=== PATIENT | female | born 1935 | race Two or more races ===

== ENCOUNTER 2020-02-11 13:07 | Inpatient (IN) | payer MEDICARE, OTHER ==
[~2020-02-11] VITALS: Ht 157.5 cm; Wt 64.4 kg
[2020-02-11] MEDS ORDERED: DOXYCYCLINE 100 MG TAB/CAP PO ONE (14:00)
[2020-02-11] MEDS ORDERED: DexAMETHasone SOD PHOS 10MG/1ML VIAL INJ IV ONE (14:00)
[2020-02-11] MEDS ORDERED: cefTRIAXone 1GM/50ML D5W 50 ML IV ONE (14:00)
[2020-02-11 14:22] LABS: Basophils # (auto) 0 10 ^3/uL (0-0.2); Eosinophils # (auto) 0 10 ^3/uL (0-0.8); Hematocrit 40.8 % (36.0-46.0); Hemoglobin 13.3 g/dL (12.2-16.2); Lymphocytes # (auto) 0.5 10 ^3/uL (0.4-5.4); Lymphocytes % (auto) 8.6 % (10.0-50.0); Mean Corpuscular Hemoglobin 29.9 pg (28.0-32.0); Mean Corpuscular Hgb Conc. 32.6 g/dL (32.0-36.0); Mean Corpuscular Volume 91.7 fL (80.0-100.0); Monocytes # (auto) 0.3 10 ^3/uL (0-1.3); Neutrophils # (auto) 4.9 10 ^3/uL (1.6-8.6); Neutrophils % (auto) 86.4 % (37.0-80.0); Platelet Count (auto) 181 10^3/uL (140-450); Red Blood Cells 4.45 10^6/uL (4.0-5.20); Red Cell Distribution Width 13.4 % (11.8-14.3); White Blood Cell 5.7 10^3/uL (4.4-10.8)
[2020-02-11 14:37] LABS: INR 0.92 (0.9-1.15); Partial Thromboplastin Time 32.5 sec (23.0-31.2)
[2020-02-11 14:40] LABS: Albumin 3.5 g/dL (3.4-5.0); Calcium 9.2 mg/dL (8.5-10.1); Potassium 4.7 mmol/L (3.5-5.1)
[2020-02-11 14:42] LABS: Lactic Acid w/Reflex 2.5 mmol/L (0.4-2.0)
[2020-02-11 14:45] LABS: BUN/Creatinine Ratio 23.8; Bilirubin, Total 0.4 mg/dL (0.2-1.0); Total Protein 8.5 g/dL (6.4-8.2)
[2020-02-11 14:58] LABS: Magnesium 2.3 mg/dL (1.6-2.6)
[2020-02-11 15:07] LABS: CRP High Sensitivity 9.71 mg/dL (< 0.3)
[2020-02-11] MEDS ORDERED: InsuLIN REG 1unit/0.01ml Soln (100units/ml) IV ONE (15:45)
[2020-02-11] MEDS ORDERED: MORPHINE SULF INJ 2 MG/ML SYRINGE 1ML IV PRN (16:00)
[2020-02-11] MEDS ORDERED: NITROGLYCERIN 0.4 MG SL TAB SL PRN (16:00)
[2020-02-11] MEDS ORDERED: DEXTROSE (50%) 50ML SYRG IV PRN (16:15)
[2020-02-11] MEDS: SODIUM CHLORIDE 0.9% 1,000 ML IV SCH ×2 (16:22→17:15)
[2020-02-11 17:46] VITALS: BP 146/73
[2020-02-11] MEDS ORDERED: SIMV10TA73 PO (18:23)
[2020-02-11] MEDS ORDERED: LISI2.5T47 PO (18:23)
[2020-02-11] MEDS ORDERED: SITA100T7 PO (18:23)
[2020-02-11] MEDS ORDERED: ASPI-231 PO (18:23)
[2020-02-11] MEDS ORDERED: METF-370 PO (18:23)
[2020-02-11] MEDS ORDERED: LORA-622 PO (18:23)
[2020-02-11] MEDS: ACCU-CHEK COMFORT CURVE STRIP VI SCH ×2 (20:04→23:49)
[2020-02-11] MEDS: InsuLIN REG 1unit/0.01ml Soln (100units/ml) SC SCH ×2 (20:05→23:46)
[2020-02-11 20:49] VITALS: BP 140/81
[2020-02-11] MEDS: ALBUTEROL SULF HFA 90MCG INH 200DOSE IN SCH (22:59)
[2020-02-11] MEDS: INSULIN LANTUS (GLARGINE) 1 /0.01ml (100units/ml) SC SCH (23:13)
[2020-02-11] MEDS: DOXYCYCLINE 100 MG TAB/CAP PO SCH (23:13)
[2020-02-12] VITALS (7 sets, daily range): BP systolic 118–133; BP diastolic 59–77
[2020-02-12] MEDS: ACCU-CHEK COMFORT CURVE STRIP VI SCH ×6 (04:20→23:43)
[2020-02-12] MEDS: InsuLIN REG 1unit/0.01ml Soln (100units/ml) SC SCH ×6 (04:20→23:43)
[2020-02-12] MEDS: INSULIN LANTUS (GLARGINE) 1 /0.01ml (100units/ml) SC SCH ×2 (05:47→22:06)
[2020-02-12] MEDS: ALBUTEROL SULF HFA 90MCG INH 200DOSE IN SCH ×3 (06:00→21:40)
[2020-02-12 07:16] LABS: Basophils # (auto) 0 10 ^3/uL (0-0.2); Basophils % (auto) 0.1 % (0.0-2.0); Eosinophils # (auto) 0 10 ^3/uL (0-0.8); Hematocrit 39.2 % (36.0-46.0); Hemoglobin 12.9 g/dL (12.2-16.2); Lymphocytes # (auto) 0.8 10 ^3/uL (0.4-5.4); Lymphocytes % (auto) 7.4 % (10.0-50.0); Mean Corpuscular Hemoglobin 30.1 pg (28.0-32.0); Mean Corpuscular Volume 91.2 fL (80.0-100.0); Monocytes # (auto) 0.5 10 ^3/uL (0-1.3); Monocytes % (auto) 5.3 % (0.0-12.0); Neutrophils # (auto) 9.1 10 ^3/uL (1.6-8.6); Neutrophils % (auto) 87.2 % (37.0-80.0); Platelet Count (auto) 193 10^3/uL (140-450); Red Cell Distribution Width 13.2 % (11.8-14.3); White Blood Cell 10.4 10^3/uL (4.4-10.8)
[2020-02-12 07:17] LABS: Albumin 2.9 g/dL (3.4-5.0); Potassium 4.2 mmol/L (3.5-5.1)
[2020-02-12 07:21] LABS: BUN/Creatinine Ratio 27.1; Bilirubin, Total 0.3 mg/dL (0.2-1.0); Total Protein 7.5 g/dL (6.4-8.2)
[2020-02-12] MEDS: DexAMETHasone SOD PHOS 10MG/1ML VIAL INJ IV SCH (09:24)
[2020-02-12] MEDS: DOXYCYCLINE 100 MG TAB/CAP PO SCH ×2 (09:24→22:06)
[2020-02-12] MEDS: ASCORBIC ACID 1,000 MG TAB PO SCH (09:24)
[2020-02-12] MEDS: ZINC SULFATE 220mg CAP or TAB PO SCH (09:25)
[2020-02-12] MEDS: ENOXAPARIN SOD 30 MG/0.3 ML SYRINGE SC SCH (09:25)
[2020-02-12] MEDS: CHOLECALCIFEROL (VITD3) 2,000 UNIT CAP PO SCH (09:25)
[2020-02-12] MEDS: cefTRIAXone 1GM/50ML D5W 50 ML IV SCH (09:26)
[2020-02-12] MEDS ORDERED: POTASSIUM EFFERVESENT TAB 25 MEQ PO ONE (16:00)
[2020-02-13] MEDS: InsuLIN REG 1unit/0.01ml Soln (100units/ml) SC SCH ×6 (03:54→23:16)
[2020-02-13] MEDS: ACCU-CHEK COMFORT CURVE STRIP VI SCH ×6 (03:54→23:15)
[2020-02-13 05:49] LABS: Basophils # (auto) 0 10 ^3/uL (0-0.2); Basophils % (auto) 0.2 % (0.0-2.0); Eosinophils # (auto) 0 10 ^3/uL (0-0.8); Hematocrit 38.3 % (36.0-46.0); Hemoglobin 12.9 g/dL (12.2-16.2); Lymphocytes # (auto) 0.8 10 ^3/uL (0.4-5.4); Lymphocytes % (auto) 6.8 % (10.0-50.0); Mean Corpuscular Hemoglobin 30.5 pg (28.0-32.0); Mean Corpuscular Hgb Conc. 33.8 g/dL (32.0-36.0); Mean Corpuscular Volume 90.4 fL (80.0-100.0); Monocytes # (auto) 0.6 10 ^3/uL (0-1.3); Monocytes % (auto) 5.5 % (0.0-12.0); Neutrophils # (auto) 10.2 10 ^3/uL (1.6-8.6); Neutrophils % (auto) 87.5 % (37.0-80.0); Platelet Count (auto) 210 10^3/uL (140-450); Red Blood Cells 4.24 10^6/uL (4.0-5.20); Red Cell Distribution Width 13.3 % (11.8-14.3); White Blood Cell 11.6 10^3/uL (4.4-10.8)
[2020-02-13 05:55] VITALS: BP 128/71
[2020-02-13 06:06] LABS: BUN/Creatinine Ratio 31.7; Calcium 8.3 mg/dL (8.5-10.1); Potassium 3.8 mmol/L (3.5-5.1)
[2020-02-13] MEDS: INSULIN LANTUS (GLARGINE) 1 /0.01ml (100units/ml) SC SCH ×2 (06:33→21:42)
[2020-02-13] MEDS: ALBUTEROL SULF HFA 90MCG INH 200DOSE IN SCH ×2 (07:12→23:08)
[2020-02-13] MEDS: DexAMETHasone SOD PHOS 10MG/1ML VIAL INJ IV SCH (08:29)
[2020-02-13] MEDS: cefTRIAXone 1GM/50ML D5W 50 ML IV SCH (08:29)
[2020-02-13] MEDS: ASCORBIC ACID 1,000 MG TAB PO SCH (08:30)
[2020-02-13] MEDS: ZINC SULFATE 220mg CAP or TAB PO SCH (08:30)
[2020-02-13] MEDS: DOXYCYCLINE 100 MG TAB/CAP PO SCH ×2 (08:30→21:43)
[2020-02-13] MEDS: CHOLECALCIFEROL (VITD3) 2,000 UNIT CAP PO SCH (08:30)
[2020-02-13] MEDS: ENOXAPARIN SOD 30 MG/0.3 ML SYRINGE SC SCH (08:31)
[2020-02-13 09:00] VITALS: BP 124/73
[2020-02-13 12:43] VITALS: BP 134/85
[2020-02-13] MEDS ORDERED: BUDESONIDE (INHALATION) 0.5 MG/2 ML NEB NEB ONE (13:00)
[2020-02-13] MEDS ORDERED: ALBUTEROL SULF HFA 90MCG INH 200DOSE IN SCH (14:00)
[2020-02-13 16:49] VITALS: BP 113/70
[2020-02-13] MEDS: guaiFENesin-DM 100/10mg/5ml SYR PO PRN (17:34)
[2020-02-13 21:30] VITALS: BP 128/76
[2020-02-13] MEDS ORDERED: BUDESONIDE (INHALATION) 0.5 MG/2 ML NEB NEB SCH (22:00)
[2020-02-13] MEDS ORDERED: PATIENTS OWN MEDICATION (PULMICORT 360 MCG) IN SCH (22:00)
[2020-02-13] MEDS: BUDESONIDE (INHALATION) 180 MCG IH IN SCH (23:08)
[2020-02-14] MEDS: InsuLIN REG 1unit/0.01ml Soln (100units/ml) SC SCH ×5 (03:39→23:37)
[2020-02-14] MEDS: ACCU-CHEK COMFORT CURVE STRIP VI SCH ×5 (03:40→23:40)
[2020-02-14 05:00] VITALS: BP 136/76
[2020-02-14] MEDS: ALBUTEROL SULF HFA 90MCG INH 200DOSE IN SCH ×5 (06:00→22:55)
[2020-02-14] MEDS: INSULIN LANTUS (GLARGINE) 1 /0.01ml (100units/ml) SC SCH ×2 (06:24→20:37)
[2020-02-14] MEDS: BUDESONIDE (INHALATION) 180 MCG IH IN SCH ×2 (07:11→22:55)
[2020-02-14 08:23] VITALS: BP 121/64
[2020-02-14] MEDS: cefTRIAXone 1GM/50ML D5W 50 ML IV SCH (09:02)
[2020-02-14] MEDS: DOXYCYCLINE 100 MG TAB/CAP PO SCH ×2 (09:03→20:39)
[2020-02-14] MEDS: CHOLECALCIFEROL (VITD3) 2,000 UNIT CAP PO SCH (09:03)
[2020-02-14] MEDS: DexAMETHasone SOD PHOS 10MG/1ML VIAL INJ IV SCH (09:03)
[2020-02-14] MEDS: ASCORBIC ACID 1,000 MG TAB PO SCH (09:03)
[2020-02-14] MEDS: ZINC SULFATE 220mg CAP or TAB PO SCH (09:03)
[2020-02-14] MEDS: ENOXAPARIN SOD 30 MG/0.3 ML SYRINGE SC SCH (09:04)
[2020-02-14 12:57] LABS: Urine Bacteria NONE SEEN /hpf (None Seen); Urine Blood Negative /uL (Negative); Urine WBC 1 /hpf (0 - 5)
[2020-02-14 13:11] VITALS: BP 129/75
[2020-02-14] MEDS ORDERED: POTASSIUM CHL 20 Meq TABLET PO ONE (14:45)
[2020-02-14] MEDS ORDERED: FUROSEMIDE 20 MG/2 ML VIAL IV ONE (14:45)
[2020-02-14] MEDS ORDERED: DEXTROSE (50%) 50ML SYRG IV PRN ×2 (15:30→15:45)
[2020-02-14 17:00] VITALS: BP 121/71
[2020-02-14] MEDS ORDERED: InsuLIN REG 1unit/0.01ml Soln (100units/ml) SC SCH ×2 (17:00→22:00)
[2020-02-14] MEDS ORDERED: ACCU-CHEK COMFORT CURVE STRIP VI SCH (17:00)
[2020-02-14 22:00] VITALS: BP 130/71
[2020-02-15 05:00] VITALS: BP 126/75
[2020-02-15] MEDS: InsuLIN REG 1unit/0.01ml Soln (100units/ml) SC SCH ×4 (06:00→23:16)
[2020-02-15] MEDS: ACCU-CHEK COMFORT CURVE STRIP VI SCH ×4 (06:04→23:13)
[2020-02-15] MEDS: INSULIN LANTUS (GLARGINE) 1 /0.01ml (100units/ml) SC SCH ×2 (06:09→21:36)
[2020-02-15] MEDS: ALBUTEROL SULF HFA 90MCG INH 200DOSE IN SCH ×3 (06:48→21:25)
[2020-02-15] MEDS: BUDESONIDE (INHALATION) 180 MCG IH IN SCH ×2 (06:48→21:25)
[2020-02-15 08:00] VITALS: BP 98/53
[2020-02-15] MEDS: cefTRIAXone 1GM/50ML D5W 50 ML IV SCH (09:00)
[2020-02-15] MEDS: FUROSEMIDE 20 MG/2 ML VIAL IV SCH (10:23)
[2020-02-15] MEDS: DexAMETHasone SOD PHOS 10MG/1ML VIAL INJ IV SCH (10:23)
[2020-02-15] MEDS: DOXYCYCLINE 100 MG TAB/CAP PO SCH ×2 (10:24→21:37)
[2020-02-15] MEDS: ASCORBIC ACID 1,000 MG TAB PO SCH (10:24)
[2020-02-15] MEDS: ZINC SULFATE 220mg CAP or TAB PO SCH (10:24)
[2020-02-15] MEDS: CHOLECALCIFEROL (VITD3) 2,000 UNIT CAP PO SCH (10:24)
[2020-02-15] MEDS: POTASSIUM CHL 20 Meq TABLET PO SCH (10:24)
[2020-02-15] MEDS: ENOXAPARIN SOD 30 MG/0.3 ML SYRINGE SC SCH (10:25)
[2020-02-15 12:00] VITALS: BP 135/73
[2020-02-15 17:00] VITALS: BP 124/58
[2020-02-15 22:00] VITALS: BP 117/54
[2020-02-16 05:00] VITALS: BP 140/70
[2020-02-16] MEDS: ACCU-CHEK COMFORT CURVE STRIP VI SCH ×4 (05:57→23:18)
[2020-02-16] MEDS: InsuLIN REG 1unit/0.01ml Soln (100units/ml) SC SCH ×4 (06:01→23:09)
[2020-02-16] MEDS: INSULIN LANTUS (GLARGINE) 1 /0.01ml (100units/ml) SC SCH ×2 (06:02→23:08)
[2020-02-16] MEDS: ALBUTEROL SULF HFA 90MCG INH 200DOSE IN SCH ×3 (06:56→21:48)
[2020-02-16] MEDS: BUDESONIDE (INHALATION) 180 MCG IH IN SCH ×2 (06:56→21:48)
[2020-02-16 07:22] LABS: Basophils # (auto) 0 10 ^3/uL (0-0.2); Basophils % (auto) 0.1 % (0.0-2.0); Eosinophils # (auto) 0 10 ^3/uL (0-0.8); Eosinophils % (auto) 0.1 % (0.0-7.0); Hematocrit 41.8 % (36.0-46.0); Hemoglobin 14.1 g/dL (12.2-16.2); Lymphocytes # (auto) 1.3 10 ^3/uL (0.4-5.4); Lymphocytes % (auto) 15.8 % (10.0-50.0); Mean Corpuscular Hemoglobin 30.4 pg (28.0-32.0); Mean Corpuscular Hgb Conc. 33.8 g/dL (32.0-36.0); Mean Corpuscular Volume 89.9 fL (80.0-100.0); Monocytes # (auto) 0.5 10 ^3/uL (0-1.3); Monocytes % (auto) 5.6 % (0.0-12.0); Neutrophils # (auto) 6.5 10 ^3/uL (1.6-8.6); Neutrophils % (auto) 78.4 % (37.0-80.0); Platelet Count (auto) 317 10^3/uL (140-450); Red Blood Cells 4.65 10^6/uL (4.0-5.20); Red Cell Distribution Width 13.3 % (11.8-14.3); White Blood Cell 8.3 10^3/uL (4.4-10.8)
[2020-02-16 07:49] LABS: Potassium 3.9 mmol/L (3.5-5.1)
[2020-02-16 07:54] LABS: BUN/Creatinine Ratio 32.9
[2020-02-16 08:00] VITALS: BP 137/75
[2020-02-16] MEDS: DexAMETHasone SOD PHOS 10MG/1ML VIAL INJ IV SCH (10:45)
[2020-02-16] MEDS: cefTRIAXone 1GM/50ML D5W 50 ML IV SCH (10:45)
[2020-02-16] MEDS: CHOLECALCIFEROL (VITD3) 2,000 UNIT CAP PO SCH (10:46)
[2020-02-16] MEDS: ASCORBIC ACID 1,000 MG TAB PO SCH (10:46)
[2020-02-16] MEDS: ENOXAPARIN SOD 30 MG/0.3 ML SYRINGE SC SCH (10:46)
[2020-02-16] MEDS: ZINC SULFATE 220mg CAP or TAB PO SCH (10:47)
[2020-02-16] MEDS: DOXYCYCLINE 100 MG TAB/CAP PO SCH (10:47)
[2020-02-16] MEDS: POTASSIUM CHL 20 Meq TABLET PO SCH (10:47)
[2020-02-16] MEDS: FUROSEMIDE 20 MG/2 ML VIAL IV SCH (10:48)
[2020-02-16 12:00] VITALS: BP 108/59
[2020-02-16 17:00] VITALS: BP 115/70
[2020-02-16 19:44] VITALS: BP 134/64
[2020-02-16 21:59] VITALS: BP 134/64
[2020-02-17 05:12] VITALS: BP 115/67
[2020-02-17] MEDS: InsuLIN REG 1unit/0.01ml Soln (100units/ml) SC SCH ×3 (06:00→18:24)
[2020-02-17] MEDS: ACCU-CHEK COMFORT CURVE STRIP VI SCH ×3 (06:26→18:19)
[2020-02-17] MEDS: INSULIN LANTUS (GLARGINE) 1 /0.01ml (100units/ml) SC SCH ×2 (06:36→21:37)
[2020-02-17 06:39] LABS: Basophils # (auto) 0 10 ^3/uL (0-0.2); Basophils % (auto) 0.3 % (0.0-2.0); Eosinophils # (auto) 0 10 ^3/uL (0-0.8); Eosinophils % (auto) 0.1 % (0.0-7.0); Hematocrit 40.2 % (36.0-46.0); Hemoglobin 13.7 g/dL (12.2-16.2); Lymphocytes # (auto) 1.5 10 ^3/uL (0.4-5.4); Mean Corpuscular Hemoglobin 30.7 pg (28.0-32.0); Mean Corpuscular Hgb Conc. 34.2 g/dL (32.0-36.0); Mean Corpuscular Volume 89.8 fL (80.0-100.0); Monocytes # (auto) 0.4 10 ^3/uL (0-1.3); Monocytes % (auto) 4.5 % (0.0-12.0); Neutrophils # (auto) 7.6 10 ^3/uL (1.6-8.6); Neutrophils % (auto) 79.1 % (37.0-80.0); Platelet Count (auto) 435 10^3/uL (140-450); Red Blood Cells 4.48 10^6/uL (4.0-5.20); Red Cell Distribution Width 13.7 % (11.8-14.3); White Blood Cell 9.6 10^3/uL (4.4-10.8)
[2020-02-17] MEDS: BUDESONIDE (INHALATION) 180 MCG IH IN SCH ×2 (06:56→23:33)
[2020-02-17] MEDS: ALBUTEROL SULF HFA 90MCG INH 200DOSE IN SCH ×3 (06:56→23:33)
[2020-02-17 06:57] LABS: Potassium 3.8 mmol/L (3.5-5.1)
[2020-02-17 07:10] LABS: BUN/Creatinine Ratio 36.3; Calcium 9.1 mg/dL (8.5-10.1)
[2020-02-17 08:31] VITALS: BP 120/44
[2020-02-17] MEDS: cefTRIAXone 1GM/50ML D5W 50 ML IV SCH (09:00)
[2020-02-17] MEDS: DexAMETHasone SOD PHOS 10MG/1ML VIAL INJ IV SCH (10:02)
[2020-02-17] MEDS: guaiFENesin-DM 100/10mg/5ml SYR PO PRN ×2 (10:02→18:24)
[2020-02-17] MEDS: ZINC SULFATE 220mg CAP or TAB PO SCH (12:05)
[2020-02-17] MEDS: POTASSIUM CHL 20 Meq TABLET PO SCH (12:05)
[2020-02-17] MEDS: ASCORBIC ACID 1,000 MG TAB PO SCH (12:05)
[2020-02-17] MEDS: FUROSEMIDE 20 MG/2 ML VIAL IV SCH (12:06)
[2020-02-17] MEDS: ENOXAPARIN SOD 30 MG/0.3 ML SYRINGE SC SCH (12:06)
[2020-02-17] MEDS: CHOLECALCIFEROL (VITD3) 2,000 UNIT CAP PO SCH (12:06)
[2020-02-17 12:21] VITALS: BP 121/72
[2020-02-17] MEDS: DOXYCYCLINE 100MG/250ML 250 ML IV SCH (13:15)
[2020-02-17 17:32] VITALS: BP 123/68
[2020-02-17 21:52] VITALS: BP 122/66
[2020-02-18] MEDS: ACCU-CHEK COMFORT CURVE STRIP VI SCH ×5 (00:08→23:51)
[2020-02-18] MEDS: InsuLIN REG 1unit/0.01ml Soln (100units/ml) SC SCH ×5 (00:16→23:58)
[2020-02-18] MEDS: DOXYCYCLINE 100MG/250ML 250 ML IV SCH ×2 (00:43→13:23)
[2020-02-18] MEDS: guaiFENesin-DM 100/10mg/5ml SYR PO PRN ×2 (02:41→10:34)
[2020-02-18 05:00] VITALS: BP 120/70
[2020-02-18] MEDS: ALBUTEROL SULF HFA 90MCG INH 200DOSE IN SCH ×3 (06:40→20:23)
[2020-02-18] MEDS: BUDESONIDE (INHALATION) 180 MCG IH IN SCH ×2 (06:41→20:22)
[2020-02-18] MEDS: INSULIN LANTUS (GLARGINE) 1 /0.01ml (100units/ml) SC SCH ×2 (06:50→21:57)
[2020-02-18 07:03] LABS: Basophils # (auto) 0 10 ^3/uL (0-0.2); Basophils % (auto) 0.2 % (0.0-2.0); Eosinophils # (auto) 0 10 ^3/uL (0-0.8); Eosinophils % (auto) 0.2 % (0.0-7.0); Hemoglobin 13.5 g/dL (12.2-16.2); Lymphocytes # (auto) 1.3 10 ^3/uL (0.4-5.4); Lymphocytes % (auto) 8.5 % (10.0-50.0); Mean Corpuscular Hemoglobin 29.9 pg (28.0-32.0); Mean Corpuscular Hgb Conc. 32.9 g/dL (32.0-36.0); Mean Corpuscular Volume 91.1 fL (80.0-100.0); Monocytes # (auto) 0.5 10 ^3/uL (0-1.3); Neutrophils # (auto) 13.7 10 ^3/uL (1.6-8.6); Neutrophils % (auto) 88.1 % (37.0-80.0); Platelet Count (auto) 347 10^3/uL (140-450); Red Cell Distribution Width 13.4 % (11.8-14.3); White Blood Cell 15.6 10^3/uL (4.4-10.8)
[2020-02-18 07:12] LABS: Potassium 3.9 mmol/L (3.5-5.1)
[2020-02-18 07:19] LABS: BUN/Creatinine Ratio 30.3; Calcium 9.2 mg/dL (8.5-10.1)
[2020-02-18 08:00] VITALS: BP 124/84
[2020-02-18] MEDS: cefTRIAXone 1GM/50ML D5W 50 ML IV SCH (09:00)
[2020-02-18] MEDS: FUROSEMIDE 20 MG/2 ML VIAL IV SCH (10:16)
[2020-02-18] MEDS: ZINC SULFATE 220mg CAP or TAB PO SCH (10:16)
[2020-02-18] MEDS: ASCORBIC ACID 1,000 MG TAB PO SCH (10:16)
[2020-02-18] MEDS: DexAMETHasone SOD PHOS 10MG/1ML VIAL INJ IV SCH (10:16)
[2020-02-18] MEDS: POTASSIUM CHL 20 Meq TABLET PO SCH (10:16)
[2020-02-18] MEDS: CHOLECALCIFEROL (VITD3) 2,000 UNIT CAP PO SCH (10:17)
[2020-02-18] MEDS: ENOXAPARIN SOD 30 MG/0.3 ML SYRINGE SC SCH (10:17)
[2020-02-18 12:00] VITALS: BP 129/86
[2020-02-18] MEDS ORDERED: FUROSEMIDE 20 MG/2 ML VIAL IV ONE (12:45)
[2020-02-18 13:34] VITALS: BP 129/86
[2020-02-18 17:00] VITALS: BP 113/73
[2020-02-18 22:00] VITALS: BP 128/86
[2020-02-19] VITALS (8 sets, daily range): BP systolic 106–125; BP diastolic 63–84
[2020-02-19] MEDS: DOXYCYCLINE 100MG/250ML 250 ML IV SCH ×2 (01:00→14:45)
[2020-02-19] MEDS: traMADol HCL 50 MG TAB PO PRN (04:20)
[2020-02-19] MEDS: ACCU-CHEK COMFORT CURVE STRIP VI SCH ×4 (05:45→23:57)
[2020-02-19] MEDS: InsuLIN REG 1unit/0.01ml Soln (100units/ml) SC SCH ×3 (05:45→17:46)
[2020-02-19] MEDS: ALBUTEROL SULF HFA 90MCG INH 200DOSE IN SCH ×3 (06:24→21:21)
[2020-02-19] MEDS: BUDESONIDE (INHALATION) 180 MCG IH IN SCH ×2 (06:24→21:21)
[2020-02-19] MEDS: INSULIN LANTUS (GLARGINE) 1 /0.01ml (100units/ml) SC SCH ×2 (06:34→22:41)
[2020-02-19] MEDS: Glucerna Carbsteady SHAKE Vanilla 8oz PO SCH ×2 (08:00→17:43)
[2020-02-19] MEDS: cefTRIAXone 1GM/50ML D5W 50 ML IV SCH (09:00)
[2020-02-19] MEDS: DexAMETHasone SOD PHOS 10MG/1ML VIAL INJ IV SCH (10:02)
[2020-02-19] MEDS: FUROSEMIDE 20 MG/2 ML VIAL IV SCH (10:02)
[2020-02-19] MEDS: ZINC SULFATE 220mg CAP or TAB PO SCH (10:03)
[2020-02-19] MEDS: CHOLECALCIFEROL (VITD3) 2,000 UNIT CAP PO SCH (10:03)
[2020-02-19] MEDS: ENOXAPARIN SOD 30 MG/0.3 ML SYRINGE SC SCH (10:03)
[2020-02-19] MEDS: ASCORBIC ACID 1,000 MG TAB PO SCH (10:03)
[2020-02-19] MEDS: guaiFENesin-DM 100/10mg/5ml SYR PO PRN ×2 (10:05→22:52)
[2020-02-19] MEDS: POTASSIUM CHL 20 Meq TABLET PO SCH (11:42)
[2020-02-19] MEDS: ACETAMINOPHEN 500 MG TAB PO PRN (12:04)
[2020-02-19] MEDS ORDERED: FUROSEMIDE 40 MG/4 ML VIAL IV ONE (14:00)
[2020-02-19] MEDS: SALINE 0.65 % NASAL SPRAY 45ML BOTTLE EACHNOSTRI SCH ×2 (14:39→22:42)
[2020-02-20] MEDS: InsuLIN REG 1unit/0.01ml Soln (100units/ml) SC SCH ×5 (00:03→23:42)
[2020-02-20] MEDS: DOXYCYCLINE 100MG/250ML 250 ML IV SCH ×2 (01:46→12:45)
[2020-02-20 05:00] VITALS: BP 129/74
[2020-02-20] MEDS: guaiFENesin-DM 100/10mg/5ml SYR PO PRN ×3 (05:01→21:38)
[2020-02-20 05:17] LABS: Basophils # (auto) 0.1 10 ^3/uL (0-0.2); Basophils % (auto) 0.5 % (0.0-2.0); Eosinophils # (auto) 0 10 ^3/uL (0-0.8); Hematocrit 41.3 % (36.0-46.0); Hemoglobin 13.3 g/dL (12.2-16.2); Lymphocytes # (auto) 0.8 10 ^3/uL (0.4-5.4); Lymphocytes % (auto) 6.2 % (10.0-50.0); Mean Corpuscular Hemoglobin 29.4 pg (28.0-32.0); Mean Corpuscular Hgb Conc. 32.3 g/dL (32.0-36.0); Mean Corpuscular Volume 90.8 fL (80.0-100.0); Monocytes # (auto) 0.3 10 ^3/uL (0-1.3); Monocytes % (auto) 2.7 % (0.0-12.0); Neutrophils # (auto) 11.4 10 ^3/uL (1.6-8.6); Neutrophils % (auto) 90.6 % (37.0-80.0); Platelet Count (auto) 230 10^3/uL (140-450); Red Blood Cells 4.55 10^6/uL (4.0-5.20); Red Cell Distribution Width 13.1 % (11.8-14.3); White Blood Cell 12.6 10^3/uL (4.4-10.8)
[2020-02-20 05:35] LABS: BUN/Creatinine Ratio 34.6; Calcium 9.3 mg/dL (8.5-10.1)
[2020-02-20] MEDS: ACCU-CHEK COMFORT CURVE STRIP VI SCH ×4 (06:00→23:42)
[2020-02-20] MEDS: SALINE 0.65 % NASAL SPRAY 45ML BOTTLE EACHNOSTRI SCH ×3 (06:30→22:54)
[2020-02-20] MEDS: INSULIN LANTUS (GLARGINE) 1 /0.01ml (100units/ml) SC SCH ×2 (06:36→21:43)
[2020-02-20] MEDS: ALBUTEROL SULF HFA 90MCG INH 200DOSE IN SCH ×3 (06:57→21:51)
[2020-02-20] MEDS: BUDESONIDE (INHALATION) 180 MCG IH IN SCH ×2 (06:58→21:51)
[2020-02-20] MEDS: Glucerna Carbsteady SHAKE Vanilla 8oz PO SCH ×2 (08:00→18:09)
[2020-02-20 09:00] VITALS: BP 115/61
[2020-02-20] MEDS: DexAMETHasone SOD PHOS 10MG/1ML VIAL INJ IV SCH (10:16)
[2020-02-20] MEDS: CHOLECALCIFEROL (VITD3) 2,000 UNIT CAP PO SCH (10:19)
[2020-02-20] MEDS: ASCORBIC ACID 1,000 MG TAB PO SCH (10:19)
[2020-02-20] MEDS: FUROSEMIDE 20 MG/2 ML VIAL IV SCH (10:19)
[2020-02-20] MEDS: POTASSIUM CHL 20 Meq TABLET PO SCH (10:19)
[2020-02-20] MEDS: ZINC SULFATE 220mg CAP or TAB PO SCH (10:19)
[2020-02-20] MEDS: ENOXAPARIN SOD 40 MG/0.4 ML SYRINGE SC SCH (10:20)
[2020-02-20 13:00] VITALS: BP 105/65
[2020-02-20 16:39] VITALS: BP 107/68
[2020-02-20 21:59] VITALS: BP 107/70
[2020-02-21] VITALS (7 sets, daily range): BP systolic 102–129; BP diastolic 57–89
[2020-02-21] MEDS: DOXYCYCLINE 100MG/250ML 250 ML IV SCH ×2 (01:12→13:03)
[2020-02-21] MEDS: traMADol HCL 50 MG TAB PO PRN (04:22)
[2020-02-21] MEDS: SALINE 0.65 % NASAL SPRAY 45ML BOTTLE EACHNOSTRI SCH ×3 (05:49→21:29)
[2020-02-21] MEDS: InsuLIN REG 1unit/0.01ml Soln (100units/ml) SC SCH ×3 (05:54→18:03)
[2020-02-21] MEDS: ACCU-CHEK COMFORT CURVE STRIP VI SCH ×3 (05:54→17:54)
[2020-02-21] MEDS: INSULIN LANTUS (GLARGINE) 1 /0.01ml (100units/ml) SC SCH ×2 (06:30→21:28)
[2020-02-21] MEDS: ALBUTEROL SULF HFA 90MCG INH 200DOSE IN SCH ×3 (06:49→22:01)
[2020-02-21] MEDS: BUDESONIDE (INHALATION) 180 MCG IH IN SCH ×2 (06:50→22:01)
[2020-02-21] MEDS: Glucerna Carbsteady SHAKE Vanilla 8oz PO SCH ×2 (09:16→18:03)
[2020-02-21] MEDS: ONDANSETRON HCL 4 MG/2 ML VIAL IV PRN (09:16)
[2020-02-21] MEDS: FUROSEMIDE 20 MG/2 ML VIAL IV SCH (09:17)
[2020-02-21] MEDS: ENOXAPARIN SOD 40 MG/0.4 ML SYRINGE SC SCH (09:17)
[2020-02-21] MEDS: DexAMETHasone SOD PHOS 10MG/1ML VIAL INJ IV SCH (09:17)
[2020-02-21] MEDS: CHOLECALCIFEROL (VITD3) 2,000 UNIT CAP PO SCH (13:04)
[2020-02-21] MEDS: POTASSIUM CHL 20 Meq TABLET PO SCH (13:04)
[2020-02-21] MEDS: ZINC SULFATE 220mg CAP or TAB PO SCH (13:04)
[2020-02-21] MEDS: ASCORBIC ACID 1,000 MG TAB PO SCH (13:04)
[2020-02-21] MEDS: ACETAMINOPHEN 500 MG TAB PO PRN (18:10)
[2020-02-21] MEDS: guaiFENesin-DM 100/10mg/5ml SYR PO PRN (19:51)
[2020-02-22] VITALS (8 sets, daily range): BP systolic 99–129; BP diastolic 51–85
[2020-02-22] MEDS: InsuLIN REG 1unit/0.01ml Soln (100units/ml) SC SCH ×5 (00:23→23:44)
[2020-02-22] MEDS: ACCU-CHEK COMFORT CURVE STRIP VI SCH ×5 (00:23→23:40)
[2020-02-22] MEDS: DOXYCYCLINE 100MG/250ML 250 ML IV SCH (01:07)
[2020-02-22] MEDS: traMADol HCL 50 MG TAB PO PRN (01:46)
[2020-02-22] MEDS: SALINE 0.65 % NASAL SPRAY 45ML BOTTLE EACHNOSTRI SCH ×3 (05:45→21:23)
[2020-02-22] MEDS: INSULIN LANTUS (GLARGINE) 1 /0.01ml (100units/ml) SC SCH ×2 (06:31→21:19)
[2020-02-22] MEDS: ALBUTEROL SULF HFA 90MCG INH 200DOSE IN SCH ×3 (07:20→22:47)
[2020-02-22] MEDS: BUDESONIDE (INHALATION) 180 MCG IH IN SCH ×2 (07:20→22:47)
[2020-02-22] MEDS: Glucerna Carbsteady SHAKE Vanilla 8oz PO SCH ×2 (08:00→17:21)
[2020-02-22] MEDS: FUROSEMIDE 20 MG/2 ML VIAL IV SCH ×3 (10:00→21:02)
[2020-02-22] MEDS: ASCORBIC ACID 1,000 MG TAB PO SCH (10:03)
[2020-02-22] MEDS: POTASSIUM CHL 20 Meq TABLET PO SCH (10:03)
[2020-02-22] MEDS: DexAMETHasone SOD PHOS 10MG/1ML VIAL INJ IV SCH (10:03)
[2020-02-22] MEDS: ZINC SULFATE 220mg CAP or TAB PO SCH (10:03)
[2020-02-22] MEDS: CHOLECALCIFEROL (VITD3) 2,000 UNIT CAP PO SCH (10:03)
[2020-02-22] MEDS: ENOXAPARIN SOD 40 MG/0.4 ML SYRINGE SC SCH (10:04)
[2020-02-22] MEDS ORDERED: THIAMINE 100mg/ml INJ (200mg/2ml VIAL) IV ONE (12:00)
[2020-02-22] MEDS ORDERED: PIPERACILLIN-TAZOB 3.375GM 100 ML IV ONE (12:00)
[2020-02-22] MEDS ORDERED: VANCOMYCIN PER PHARMACY 0 MG IV SCH (12:00)
[2020-02-22] MEDS ORDERED: INSULIN LANTUS (GLARGINE) 1 /0.01ml (100units/ml) SC ONE (12:45)
[2020-02-22] MEDS: SODIUM CHLORIDE 0.9% 1,000 ML IV SCH (12:53)
[2020-02-22] MEDS: ACETAMINOPHEN 500 MG TAB PO PRN (12:54)
[2020-02-22] MEDS ORDERED: VANCOMYCIN 1GM/250ML 250 ML IV SCH (15:00)
[2020-02-22] MEDS: PIPERACILLIN-TAZOB 3.375GM 100 ML IV SCH ×2 (17:23→23:24)
[2020-02-23] VITALS (11 sets, daily range): BP systolic 90–115; BP diastolic 55–92
[2020-02-23] MEDS: traMADol HCL 50 MG TAB PO PRN ×2 (00:45→20:10)
[2020-02-23 03:21] LABS: Basophils # (auto) 0 10 ^3/uL (0-0.2); Basophils % (auto) 0.1 % (0.0-2.0); Eosinophils # (auto) 0 10 ^3/uL (0-0.8); Hematocrit 38.5 % (36.0-46.0); Hemoglobin 12.8 g/dL (12.2-16.2); Lymphocytes # (auto) 1.1 10 ^3/uL (0.4-5.4); Lymphocytes % (auto) 5.4 % (10.0-50.0); Mean Corpuscular Hemoglobin 29.7 pg (28.0-32.0); Mean Corpuscular Hgb Conc. 33.3 g/dL (32.0-36.0); Mean Corpuscular Volume 89.3 fL (80.0-100.0); Monocytes # (auto) 0.4 10 ^3/uL (0-1.3); Monocytes % (auto) 1.9 % (0.0-12.0); Neutrophils # (auto) 18.4 10 ^3/uL (1.6-8.6); Neutrophils % (auto) 92.6 % (37.0-80.0); Nucleated Red Blood Cells % 0.1 %; Platelet Count (auto) 212 10^3/uL (140-450); Red Blood Cells 4.31 10^6/uL (4.0-5.20); White Blood Cell 19.8 10^3/uL (4.4-10.8)
[2020-02-23 03:37] LABS: INR 1.05 (0.9-1.15); Partial Thromboplastin Time 27.1 sec (23.0-31.2)
[2020-02-23 03:48] LABS: Albumin 2.1 g/dL (3.4-5.0); Bilirubin, Total 0.5 mg/dL (0.2-1.0); Calcium 8.5 mg/dL (8.5-10.1); Magnesium 1.9 mg/dL (1.6-2.6); Phosphorus 4.3 mg/dL (2.5-4.90); Total Protein 6.6 g/dL (6.4-8.2)
[2020-02-23] MEDS: SODIUM CHLORIDE 0.9% 1,000 ML IV SCH (04:40)
[2020-02-23] MEDS: InsuLIN REG 1unit/0.01ml Soln (100units/ml) SC SCH ×4 (06:00→23:38)
[2020-02-23] MEDS: SALINE 0.65 % NASAL SPRAY 45ML BOTTLE EACHNOSTRI SCH ×3 (06:00→22:28)
[2020-02-23] MEDS: INSULIN LANTUS (GLARGINE) 1 /0.01ml (100units/ml) SC SCH ×2 (06:29→22:28)
[2020-02-23] MEDS: ACCU-CHEK COMFORT CURVE STRIP VI SCH ×4 (06:29→23:36)
[2020-02-23] MEDS: PIPERACILLIN-TAZOB 3.375GM 100 ML IV SCH ×4 (06:29→23:36)
[2020-02-23] MEDS: ALBUTEROL SULF HFA 90MCG INH 200DOSE IN SCH ×3 (07:15→22:20)
[2020-02-23] MEDS: BUDESONIDE (INHALATION) 180 MCG IH IN SCH ×2 (07:15→22:20)
[2020-02-23] MEDS: Glucerna Carbsteady SHAKE Vanilla 8oz PO SCH ×2 (08:00→18:45)
[2020-02-23] MEDS: THIAMINE 100mg/ml INJ (200mg/2ml VIAL) IV SCH (10:00)
[2020-02-23] MEDS: ZINC SULFATE 220mg CAP or TAB PO SCH (10:01)
[2020-02-23] MEDS: POTASSIUM CHL 20 Meq TABLET PO SCH (10:01)
[2020-02-23] MEDS: DexAMETHasone SOD PHOS 10MG/1ML VIAL INJ IV SCH (10:01)
[2020-02-23] MEDS: CHOLECALCIFEROL (VITD3) 2,000 UNIT CAP PO SCH (10:01)
[2020-02-23] MEDS: ASCORBIC ACID 1,000 MG TAB PO SCH (10:01)
[2020-02-23] MEDS: ENOXAPARIN SOD 40 MG/0.4 ML SYRINGE SC SCH (10:02)
[2020-02-23] MEDS: FUROSEMIDE 20 MG/2 ML VIAL IV SCH ×2 (10:18→22:14)
[2020-02-23] MEDS ORDERED: DOCUSATE SOD 100 MG CAP PO ONE ×2 (13:45→13:54)
[2020-02-23] MEDS: ONDANSETRON HCL 4 MG/2 ML VIAL IV PRN (13:56)
[2020-02-23] MEDS: guaiFENesin-DM 100/10mg/5ml SYR PO PRN (20:16)
[2020-02-23] MEDS: SENNA 8.6 MG TAB PO SCH (22:00)
[2020-02-24] VITALS (15 sets, daily range): BP systolic 90–130; BP diastolic 59–72
[2020-02-24] MEDS: SODIUM CHLORIDE 0.9% 1,000 ML IV SCH (02:34)
[2020-02-24 03:04] LABS: Basophils # (auto) 0 10 ^3/uL (0-0.2); Basophils % (auto) 0.1 % (0.0-2.0); Eosinophils # (auto) 0 10 ^3/uL (0-0.8); Hemoglobin 12.6 g/dL (12.2-16.2); Lymphocytes # (auto) 0.9 10 ^3/uL (0.4-5.4); Lymphocytes % (auto) 4.6 % (10.0-50.0); Mean Corpuscular Hemoglobin 29.8 pg (28.0-32.0); Mean Corpuscular Hgb Conc. 33.1 g/dL (32.0-36.0); Mean Corpuscular Volume 90.1 fL (80.0-100.0); Monocytes # (auto) 0.3 10 ^3/uL (0-1.3); Monocytes % (auto) 1.5 % (0.0-12.0); Neutrophils # (auto) 18.9 10 ^3/uL (1.6-8.6); Neutrophils % (auto) 93.8 % (37.0-80.0); Platelet Count (auto) 197 10^3/uL (140-450); Red Blood Cells 4.22 10^6/uL (4.0-5.20); Red Cell Distribution Width 13.3 % (11.8-14.3); White Blood Cell 20.1 10^3/uL (4.4-10.8)
[2020-02-24 03:27] LABS: Calcium 8.3 mg/dL (8.5-10.1); Potassium 4.1 mmol/L (3.5-5.1)
[2020-02-24 03:29] LABS: BUN/Creatinine Ratio 31.3
[2020-02-24] MEDS: SALINE 0.65 % NASAL SPRAY 45ML BOTTLE EACHNOSTRI SCH ×3 (05:52→22:51)
[2020-02-24] MEDS: ALBUTEROL SULF HFA 90MCG INH 200DOSE IN SCH ×2 (05:52→22:00)
[2020-02-24] MEDS: INSULIN LANTUS (GLARGINE) 1 /0.01ml (100units/ml) SC SCH ×2 (05:54→22:00)
[2020-02-24] MEDS: PIPERACILLIN-TAZOB 3.375GM 100 ML IV SCH ×4 (05:54→22:56)
[2020-02-24] MEDS: ACCU-CHEK COMFORT CURVE STRIP VI SCH ×3 (05:54→18:04)
[2020-02-24] MEDS: InsuLIN REG 1unit/0.01ml Soln (100units/ml) SC SCH ×3 (05:54→18:06)
[2020-02-24] MEDS: ACETAMINOPHEN 500 MG TAB PO PRN (06:21)
[2020-02-24] MEDS: BUDESONIDE (INHALATION) 180 MCG IH IN SCH ×2 (07:04→22:06)
[2020-02-24] MEDS: Glucerna Carbsteady SHAKE Vanilla 8oz PO SCH ×2 (08:00→18:04)
[2020-02-24] MEDS: ENOXAPARIN SOD 40 MG/0.4 ML SYRINGE SC SCH (09:29)
[2020-02-24] MEDS: FUROSEMIDE 20 MG/2 ML VIAL IV SCH ×2 (09:32→22:51)
[2020-02-24] MEDS: THIAMINE 100mg/ml INJ (200mg/2ml VIAL) IV SCH (09:33)
[2020-02-24] MEDS: DexAMETHasone SOD PHOS 10MG/1ML VIAL INJ IV SCH (09:33)
[2020-02-24] MEDS: ZINC SULFATE 220mg CAP or TAB PO SCH (09:34)
[2020-02-24] MEDS: CHOLECALCIFEROL (VITD3) 2,000 UNIT CAP PO SCH (09:34)
[2020-02-24] MEDS: POTASSIUM CHL 20 Meq TABLET PO SCH (09:34)
[2020-02-24] MEDS: ASCORBIC ACID 1,000 MG TAB PO SCH (09:34)
[2020-02-24] MEDS ORDERED: DOCUSATE SOD 100 MG CAP PO PRN (10:00)
[2020-02-24] MEDS: traMADol HCL 50 MG TAB PO PRN (21:30)
[2020-02-24] MEDS ORDERED: LORazepam 2MG/ML-1ML VIAL IV ONE (22:30)
[2020-02-24] MEDS: SENNA 8.6 MG TAB PO SCH (22:51)
[2020-02-25] VITALS (12 sets, daily range): BP systolic 69–154; BP diastolic 40–96
[2020-02-25] MEDS: PIPERACILLIN-TAZOB 3.375GM 100 ML IV SCH (05:00)
[2020-02-25] MEDS: SALINE 0.65 % NASAL SPRAY 45ML BOTTLE EACHNOSTRI SCH (06:00)
[2020-02-25] MEDS: ACCU-CHEK COMFORT CURVE STRIP VI SCH ×2 (06:00)
[2020-02-25] MEDS: InsuLIN REG 1unit/0.01ml Soln (100units/ml) SC SCH ×2 (06:00)
[2020-02-25] MEDS: INSULIN LANTUS (GLARGINE) 1 /0.01ml (100units/ml) SC SCH (06:05)
[2020-02-25] MEDS ORDERED: LORazepam 2MG/ML-1ML VIAL ONE (06:51)
[2020-02-25] MEDS: Glucerna Carbsteady SHAKE Vanilla 8oz PO SCH (08:00)
[2020-02-25] MEDS: FUROSEMIDE 20 MG/2 ML VIAL IV SCH (09:00)
[2020-02-25] MEDS: POTASSIUM CHL 20 Meq TABLET PO SCH (10:00)
[2020-02-25] MEDS: DexAMETHasone SOD PHOS 10MG/1ML VIAL INJ IV SCH (10:00)
[2020-02-25] MEDS: ZINC SULFATE 220mg CAP or TAB PO SCH (10:00)
[2020-02-25] MEDS: CHOLECALCIFEROL (VITD3) 2,000 UNIT CAP PO SCH (10:00)
[2020-02-25] MEDS: ASCORBIC ACID 1,000 MG TAB PO SCH (10:00)
[2020-02-25] MEDS ORDERED: MORPHINE SULF INJ 2 MG/ML SYRINGE 1ML IV PRN (11:45)
[2020-02-25] MEDS ORDERED: LORazepam 2MG/ML-1ML VIAL IV SCH (12:00)
== END 2020-02-25 19:37 | disposition expired | DRG 177 ==
LOC: ER 13:07 → TELE-DOU 13:08 → TELE-EAST 17:45 → DOU IN ICU 02-22 11:13
PROVIDERS: ADMIT Internal Medicine; ATTEND Internal Medicine Pulmonary Disease
PROC: 30233M1 Transfusion of Nonautologous Plasma Cryoprecipitate into Peripheral Vein, Percutaneous Approach (ICD-10-PCS; principal; 2020-02-19)
PROC: XW14325 Transfusion of Convalescent Plasma (Nonautologous) into Central Vein, Percutaneous Approach, New Technology Group 5 (ICD-10-PCS; 2020-02-23)
DX: U07.1 COVID-19 (principal); J96.01 Acute respiratory failure with hypoxia; J12.89 Other viral pneumonia; I50.31 Acute diastolic (congestive) heart failure; E87.1 Hypo-osmolality and hyponatremia; I10 Essential (primary) hypertension; E78.5 Hyperlipidemia, unspecified; E11.65 Type 2 diabetes mellitus with hyperglycemia; D72.829 Elevated white blood cell count, unspecified; Z83.3 Family history of diabetes mellitus; Z66 Do not resuscitate
CPT/HCPCS: 36415; 36600; 71045; 80048; 80053; 81001; 82728; 82805; 82962; 83036; 83605; 83615; 83735; 83880; 84100; 85025; 85379; 85610; 85730; 86141; 86850; 86900; 86901; 87040; 93005; 93970; 94640; 94660; 94762; 96365; 96375; 97110; 97116; 97163; 97530; A4615; G0378; J0696; J1100; J1815; J2405; J2543; J3490